=== PATIENT | male | born 1940 | race Caucasian/White ===

== ENCOUNTER 2018-05-22 09:49 | Outpatient (REF) | payer MEDICARE, SELFPAY ==
[2018-05-22 19:08] LABS: AST 29 U/L (15-37); Anion Gap 8.3 mmol/L (3-11); BUN 23 mg/dL (7-18); CO2 29.7 mmol/L (21.0-32.0); CREATININE 1.05 mg/dL (0.70-1.30); Calcium 8.8 mg/dL (8.5-10.1); Chloride 107 mmol/L (98-107); Cholesterol 126 mg/dL (50-200); Glucose 94 mg/dL (70-100); LDL CHOLESTEROL 52 mg/dL (<100); Potassium 4.2 mmol/L (3.5-5.1); Sodium 145 mmol/L (136-145); Triglyceride 64 mg/dL (30-150)
[2018-05-22 19:36] LABS: ALT 43 U/L (12-78); HDL Cholesterol 63 mg/dL (40-60)
[2018-05-22 19:52] LABS: Bilirubin, Direct 0.31 mg/dL (0.00-0.20)
== END 2018-05-22 10:09 ==
LOC: NCHCN 09:49
PROVIDERS: PCP Physician Assistant; Visit Provider Nurse Practitioner Family
DX: E78.5 Hyperlipidemia, unspecified (principal); I10 Essential (primary) hypertension
CPT/HCPCS: 80048; 80061; 83721; 82248; 84450; 84460

== ENCOUNTER 2019-05-23 09:31 | Outpatient (REF) | payer MEDICARE, SELFPAY ==
[2019-05-23 19:24] LABS: ALT 38 U/L (16-63); AST 23 U/L (15-37); Albumin 3.9 g/dL (3.4-5.0); Alkaline Phosphatase 111 U/L (46-116); Anion Gap 9.7 mmol/L (3-11); BUN 17 mg/dL (7-18); Bilirubin, Total 2.2 mg/dL (0.2-1.0); CO2 28.3 mmol/L (21.0-32.0); CREATININE 1.08 mg/dL (0.70-1.30); Calcium 8.7 mg/dL (8.5-10.1); Chloride 106 mmol/L (98-107); Glucose 98 mg/dL (74-106); Potassium 3.8 mmol/L (3.5-5.1); Sodium 144 mmol/L (136-145); Total Protein 7.2 g/dL (6.4-8.2)
[2019-05-23 19:38] LABS: Bilirubin, Direct 0.31 mg/dL (0.00-0.20)
== END 2019-05-23 09:51 ==
LOC: NCHCN 09:31
PROVIDERS: PCP Physician Assistant; Visit Provider Nurse Practitioner Family
DX: E80.4 Gilbert syndrome (principal); I10 Essential (primary) hypertension
CPT/HCPCS: 80048; 80076

== ENCOUNTER 2020-03-11 10:51 | Outpatient (REF) | payer MEDICARE, SELFPAY ==
[2020-03-14 09:01] LABS: COVID-19 RT-PCR UVMMC Result Positive (Negative)
== END 2020-03-11 11:11 ==
LOC: NCHCN 10:51
PROVIDERS: PCP Physician Assistant; Visit Provider Nurse Practitioner Family
DX: Z20.828 Contact with and (suspected) exposure to other viral communicable diseases (principal)
CPT/HCPCS: U0003

== ENCOUNTER 2020-07-22 13:04 | Outpatient (REF) | payer MEDICARE, SELFPAY ==
[2020-07-22 15:20] LABS: ALT 42 U/L (16-63); AST 27 U/L (15-37); Albumin 3.6 g/dL (3.4-5.0); Alkaline Phosphatase 115 U/L (46-116); Anion Gap 9.3 mmol/L (3-11); BUN 21 mg/dL (7-18); Bilirubin, Total 1.9 mg/dL (0.2-1.0); CO2 26.7 mmol/L (21.0-32.0); CREATININE 1.1 mg/dL (0.70-1.30); Calcium 8.6 mg/dL (8.5-10.1); Calculated LDL 54 mg/dL (<100); Chloride 106 mmol/L (98-107); Cholesterol 130 mg/dL (<200); Glucose 99 mg/dL (74-106); HDL Cholesterol 55 mg/dL (40-60); Potassium 3.7 mmol/L (3.5-5.1); Sodium 142 mmol/L (136-145); Triglyceride 106 mg/dL (<150)
[2020-07-22 16:25] LABS: Bilirubin, Direct 0.3 mg/dL (0.0-0.2)
== END 2020-07-22 13:05 | disposition home or self-care (01) ==
LOC: NCHCN 13:04
PROVIDERS: PCP Physician Assistant; Visit Provider Nurse Practitioner Family
DX: I10 Essential (primary) hypertension (principal); E78.5 Hyperlipidemia, unspecified; E80.4 Gilbert syndrome
CPT/HCPCS: 80048; 80061; 80076

== ENCOUNTER 2021-08-03 21:00 | Outpatient (REF) | payer MEDICARE, SELFPAY ==
[2021-08-03 20:19] LABS: ALT 37 U/L (16-63); AST 24 U/L (15-37); Alkaline Phosphatase 109 U/L (46-116); Anion Gap 7.7 mmol/L (3-11); BUN 17 mg/dL (7-18); Bilirubin, Total 2.4 mg/dL (0.2-1.0); CO2 28.3 mmol/L (21.0-32.0); CREATININE 0.9 mg/dL (0.70-1.30); Calcium 8.6 mg/dL (8.5-10.1); Chloride 107 mmol/L (98-107); Glucose 89 mg/dL (74-106); Sodium 143 mmol/L (136-145); Total Protein 7.1 g/dL (6.4-8.2)
== END 2021-08-03 21:01 | disposition home or self-care (01) ==
LOC: NCHCN 21:00
PROVIDERS: PCP Physician Assistant; Visit Provider Nurse Practitioner Family
DX: I10 Essential (primary) hypertension (principal)
CPT/HCPCS: 80053

== ENCOUNTER 2022-07-04 10:44 | Outpatient (REF) | payer MEDICARE, SELFPAY ==
[2022-07-04 19:01] LABS: ALT 42 U/L (16-63); AST 29 U/L (15-37); Albumin 3.8 g/dL (3.4-5.0); Alkaline Phosphatase 114 U/L (46-116); BUN 21 mg/dL (7-18); Bilirubin, Total 2.1 mg/dL (0.2-1.0); CREATININE 1.1 mg/dL (0.70-1.30); Calcium 8.8 mg/dL (8.5-10.1); Calculated LDL 43 mg/dL (<100); Chloride 106 mmol/L (98-107); Cholesterol 114 mg/dL (<200); Estimated GFR 67.86 (mL/min/1.73m2); Glucose 95 mg/dL (74-106); HDL Cholesterol 60 mg/dL (40-60); Potassium 3.7 mmol/L (3.5-5.1); Sodium 141 mmol/L (136-145); Total Protein 7.5 g/dL (6.4-8.2); Triglyceride 58 mg/dL (<150)
[2022-07-04 19:02] LABS: Hemoglobin A1C 5.9 % (<5.7)
== END 2022-07-04 10:45 | disposition home or self-care (01) ==
LOC: NCHCN 10:44
PROVIDERS: PCP Physician Assistant; Visit Provider Nurse Practitioner Family
DX: E78.5 Hyperlipidemia, unspecified (principal); I10 Essential (primary) hypertension; I25.10 Atherosclerotic heart disease of native coronary artery without angina pectoris; R73.09 Other abnormal glucose
CPT/HCPCS: 80053; 80061; 83036

== ENCOUNTER 2023-07-04 22:16 | Outpatient (REF) | payer MEDICARE, SELFPAY ==
[2023-07-04 18:55] LABS: ALT 42 U/L (16-63); AST 32 U/L (15-37); Albumin 3.7 g/dL (3.4-5.0); Alkaline Phosphatase 100 U/L (46-116); Anion Gap 9.3 mmol/L (3-11); BUN 23 mg/dL (7-18); Bilirubin, Total 2.4 mg/dL (0.2-1.0); CO2 27.7 mmol/L (21.0-32.0); CREATININE 1.1 mg/dL (0.70-1.30); Calcium 8.8 mg/dL (8.5-10.1); Chloride 106 mmol/L (98-107); Estimated GFR 67.44 (mL/min/1.73m2); Glucose 96 mg/dL (74-106); Sodium 143 mmol/L (136-145); Total Protein 7.2 g/dL (6.4-8.2)
== END 2023-07-04 22:17 | disposition home or self-care (01) ==
LOC: NCHCN 22:16
PROVIDERS: PCP Physician Assistant; Referring Provider Nurse Practitioner Family; Visit Provider Nurse Practitioner Family
DX: I10 Essential (primary) hypertension (principal)
CPT/HCPCS: 80053

== ENCOUNTER 2024-07-01 15:01 | Outpatient (REF) | payer MEDICARE, SELFPAY ==
[2024-07-01 19:44] LABS: ALT 28 U/L (16-63); AST 30 U/L (15-37); Albumin 3.8 g/dL (3.4-5.0); Alkaline Phosphatase 113 U/L (46-116); Anion Gap 5.6 mmol/L (3-11); BUN 22 mg/dL (7-18); Bilirubin, Total 2.2 mg/dL (0.2-1.0); CO2 31.4 mmol/L (21.0-32.0); CREATININE 1.1 mg/dL (0.70-1.30); Calcium 9.5 mg/dL (8.5-10.1); Calculated LDL 49 mg/dL (<100); Chloride 108 mmol/L (98-107); Cholesterol 129 mg/dL (<200); Estimated GFR 67.02 (mL/min/1.73m2); Glucose 94 mg/dL (74-106); HDL Cholesterol 67 mg/dL (>or=40); Potassium 5.1 mmol/L (3.5-5.1); Sodium 145 mmol/L (136-145); Total Protein 7.7 g/dL (6.4-8.2); Triglyceride 65 mg/dL (<150)
== END 2024-07-01 15:02 | disposition home or self-care (01) ==
LOC: NCHCN 15:01
PROVIDERS: PCP Physician Assistant; Visit Provider Nurse Practitioner Family
DX: E78.5 Hyperlipidemia, unspecified (principal)
CPT/HCPCS: 80053; 80061